=== PATIENT | male | born 1940 | race Caucasian/White ===

== ENCOUNTER 2017-03-02 13:02 | Outpatient (CLI) | payer MEDICARE, OTHER ==
[2017-03-02] MEDS ORDERED: IOPAMIDOL-300 100 ML VIAL IVP ONE (14:50)
--- NOTE | 2017-03-02 18:15 | CT Report ---
CT ABDOMEN AND PELVIS WITH AND WITHOUT CONTRAST: 03/02/2017 CLINICAL INDICATION: Right renal angiomyolipoma. TECHNIQUE: Axial CT images of the abdomen and pelvis were obtained prior to and following 100 mL Iso jon-300 intravenously, using split-bolus protocol. COMPARISON: Ultrasound 11/05/2015, CT 11/07/2014. FINDINGS: Limited evaluation of the lung bases is unremarkable. A small hiatal hernia is incidental ly noted. ABDOMEN: The right kidney again demonstrates a small angiomyolipoma in the posterior cortex. No lalo picious solid renal lesion is appreciated. No collecting system lesion is seen. The liver, spleen, pancreas, and adrenal glands are unremarkable. The gallbladder is not dilated. No bowel dilatation, free gas, or free fluid is present. No abdominal adenopathy is seen. PELVIS: The distal ureters are not dilated. No definite bladder lesion is appreciated. Scattered c olonic diverticulosis is seen, without CT evidence of diverticulitis. Osseous structures demonstrate degenerative changes. IMPRESSION: STABLE RIGHT RENAL ANGIOMYOLIPOMA. NO SUSPICIOUS RENAL LESION OR COLLECTING SYSTEM LESI ON IS IDENTIFIED. In accordance with CT protocol optimization, one or more of the following dose reduction techniques w ere utilized for this exam: automated exposure control, adjustment of mA and/or KV based on patient size, or use of iterative reconstructive technique. JOB #: [id number] EXT JOB #:[id number]
== END 2017-03-02 13:03 | disposition home or self-care (01) ==
LOC: DI 13:02
PROVIDERS: ATTEND Specialist
DX: D17.71 Benign lipomatous neoplasm of kidney (principal); N31.2 Flaccid neuropathic bladder, not elsewhere classified
CPT/HCPCS: 74178; Q9967

== ENCOUNTER 2017-04-02 11:38 | Outpatient (CLI) | payer MEDICARE, OTHER ==
--- NOTE | 2017-04-02 12:16 | XRAY Report ---
THREE-VIEW RIGHT KNEE: 04/02/2017 CLINICAL INDICATION: Pain. FINDINGS: AP, lateral, sunrise views of the right knee demonstrate mild osteoarthritis, with small o steophytes. A small effusion is present. There is no evidence of acute fracture or dislocation. IMPRESSION: MILD OSTEOARTHRITIS, WITH A SMALL JOINT EFFUSION. JOB #: [id number] EXT JOB #:[id number]
== END 2017-04-02 11:39 | disposition home or self-care (01) ==
LOC: DI 11:38
PROVIDERS: ATTEND Specialist
DX: M25.561 Pain in right knee (principal); M17.11 Unilateral primary osteoarthritis, right knee; M25.461 Effusion, right knee

== ENCOUNTER 2018-01-28 14:42 | Outpatient (CLI) | payer MEDICARE, OTHER ==
--- NOTE | 2018-01-29 15:50 | MRI Report ---
Procedure Date: 01/28/2018 Accession Number: [id number] / [id number] Procedure: MRI - Lumbar Spine W/O CPT Code: FULL RESULT: EXAM: MRI LUMBAR SPINE WITHOUT CONTRAST EXAM DATE: 01/28/2018 03:34 PM. CLINICAL HISTORY: 77-year-old with back pain, buttock pain, and bilateral lower extremity radiculopathy COMPARISON: MR lumbar spine 11/09/2014. TECHNIQUE: Multiplanar, multisequence T1-weighted and fluid-sensitive sequences of the lumbar spine from T12 to S1 without contrast. Other: None. FINDINGS: Spinal Cord: The conus terminates at L1-L2. The conus medullaris and cauda equina are unremarkable. Alignment: Frame Aligner sequence suggest 12 degrees of dextroconvex scoliotic curvature. There is 1-2 mm of fouzia retrolisthesis of L2 on L3, 3-4 mm of grade I anterolisthesis of L3 on L4 and 1-2 mm of grade I anterolisthesis of L4 on L5. Bone Marrow: Five cwn-pyk-ttccsml lumbar vertebral bodies are assumed. No acute fracture. There is endplate edema seen at L2-L3, L3-L4, L4-L5, and L5-S1 that may be degenerative in nature. No definite abnormal marrow replacing lesion. There is edema seen within the right L5 pedicle and facet may represent stress reaction. Disk Levels/Facets: There is ybdi-zx-ahtwfqab degenerative change, scattered Schmorl's node formation, mild loss of diskitis, disk desiccation seen throughout the lumbar spine. T11-T12: Small posterior disk bulge and bilateral arthritic facet disease, and prominent epidural fat. Mild spinal canal stenosis. Mild right neural foraminal narrowing. Findings appear progressed. T12-L1: Small posterior disk bulge, bilateral facet disease, and prominent epidural fat. Mild spinal canal stenosis. Minimal bilateral neural foraminal narrowing. Findings appear progressed. L1-L2: Small posterior disk bulge, bilateral facet disease, and prominent epidural fat. Mild spinal canal stenosis. Minimal bilateral neural foraminal narrowing. Findings appear progressed. L2-L3: Small posterior disk bulge, ligamentum flavum thickening, arthritic facet disease, and prominent epidural fat. Severe spinal canal stenosis and effacement of the lateral recesses with mass effect on the traversing bilateral L3 nerve roots. Moderate bilateral neural foraminal narrowing. Findings appear progressed. L3-L4: Small posterior disk bulge, bilateral facet disease, ligamentum flavum thickening, and prominent epidural fat. Severe spinal canal stenosis and effacement of lateral recesses with mass effect on the traversing bilateral L4 nerve roots. Moderate bilateral neural foraminal narrowing. Findings appear progressed. L4-L5: Small posterior disk bulge, bilateral facet disease, and ligamentum flavum thickening. Moderate to severe spinal canal stenosis. Moderate bilateral neural foraminal narrowing. Findings appear progressed. L5-S1: Small posterior disk bulge and bilateral facet disease. Effacement of the lateral recesses. Axho-nh-ywpmznss bilateral neural foraminal narrowing. Findings appear progressed. Musculature: Normal. No edema or fatty atrophy. Other: The partially visualized retroperitoneum is unremarkable. IMPRESSION: 1. Frame Aligner sequence suggest 12 degrees of dextroconvex scoliotic curvature. 2. There is 1-2 mm of fouzia retrolisthesis of L2 on L3, 3-4 mm of grade I anterolisthesis of L3 on L4 and 1-2 mm of grade I anterolisthesis of L4 on L5. 3. Multilevel degenerative changes that appear progressed from 11/09/2014. T11-T12: Mild spinal canal stenosis. Mild right neural foraminal narrowing. T12-l1: Mild spinal canal stenosis. Minimal bilateral neural foraminal narrowing. L1-l2: Mild spinal canal stenosis. Minimal bilateral neural foraminal narrowing. L2-L3: Severe spinal canal stenosis and effacement of the lateral recesses with mass effect on the traversing bilateral L3 nerve roots. Moderate bilateral neural foraminal narrowing. L3-L4: Severe spinal canal stenosis and effacement of lateral recesses with mass effect on the traversing bilateral L4 nerve roots. Moderate bilateral neural foraminal narrowing. L4-L5: Moderate to severe spinal canal stenosis. Moderate bilateral neural foraminal narrowing. L5-S1: Effacement of the lateral recesses. Hucs-yz-dunpsfog bilateral neural foraminal narrowing. Comment: The following findings are so common in adults without low back pain that while we report their presence, they must be interpreted with caution and in the context of the clinical situation. (Reference Maryk et al, Spine 2001) Prevalence of findings in patients without low back pain: Disk degeneration (any evidence): 92% Disk desiccation/T2 signal loss: 83% Disk height loss: 56% Disk bulge: 64% Disk protrusion: 32% Annular tear/high intensity zone: 38% RADIA
== END 2018-01-28 14:43 | disposition home or self-care (01) ==
LOC: DI 14:42
PROVIDERS: ATTEND Internal Medicine
DX: M47.896 Other spondylosis, lumbar region (principal); M51.36 Other intervertebral disc degeneration, lumbar region; M48.062 Spinal stenosis, lumbar region with neurogenic claudication; M43.16 Spondylolisthesis, lumbar region; M41.86 Other forms of scoliosis, lumbar region; M48.05 Spinal stenosis, thoracolumbar region
CPT/HCPCS: 72148

== ENCOUNTER 2020-12-13 08:24 | Outpatient (CLI) | payer MEDICARE, OTHER ==
--- NOTE | 2020-12-13 09:14 | XRAY Report ---
PROCEDURE: Wrist 4 View RT INDICATIONS: RIGHT SCAPHOID TENDERNESS TECHNIQUE: 4 views of the wrist were acquired. COMPARISON: None. FINDINGS: Bones: No fractures or dislocations. No suspicious bony lesions. Mild degenerative joint disease i s present at the radiocarpal joint and triscaphe joint. Scaphoid view: Scaphoid is intact. Soft tissues: No suspicious soft tissue calcifications. IMPRESSION: 1. No acute osseous abnormalities. If clinical symptoms persist, MRI may be helpful. 2. Mild degenerative joint disease. Reviewed by: Louis Jalloh MD on 12/13/2020 9:13 AM PDT Approved by: Louis Jalloh MD on 12/13/2020 9:13 AM PDT Station ID: [id number]
== END 2020-12-13 08:25 | disposition home or self-care (01) ==
LOC: DI.N 08:24
PROVIDERS: ATTEND Family Medicine
DX: M19.031 Primary osteoarthritis, right wrist (principal)

== ENCOUNTER 2022-11-01 16:39 | Emergency (ER) | payer MEDICARE, OTHER ==
[2022-11-01 16:48] VITALS: BP 194/90
[2022-11-01] MEDS ORDERED: PROPARACAINE 0.5% OPHTH DROPS 15 ML EACHEYE STA (16:50)
--- NOTE | 2022-11-01 17:05 | ED Physician Documentation ---
PD HPI OPHTHO - Stated complaint Stated Complaint: RT EYE INJ - Chief complaint Chief Complaint: Heent - History obtained from History obtained from: Patient - Additional information Additional information: This is an 82-year-old gentleman who wears glasses but otherwise does not have any eye problems. He developed bilateral eye irritation and potential foreign body sensation on the right at 1230 today while "puttering" outside. He was not doing anything specific that would cause a foreign body except he was throwing hay for his horses. His vision is unaffected. He tried irrigating the eyes which was unhelpful. PD PAST MEDICAL HISTORY - Past Medical History Cardiovascular: Hypertension, High cholesterol Respiratory: None Endocrine/Autoimmune: HyPERthyroidism GI: None : Benign prostate hypertrophy HEENT: None Psych: None Derm: None - Past Surgical History Past Surgical History: Yes General: Appendectomy, Colonoscopy - Present Medications Home Medications: Ambulatory Orders Medication Instructions Recorded Confirmed Aspirin [Aspir 81] 81 mg PO DAILY 07/23/15 11/01/22 HYDROcod/ACETAM 5/325 [Vicodin 1 - 2 ea PO Q6H PRN 07/23/15 11/01/22 5/325] Lisinopril 20 mg PO DAILY 07/23/15 11/01/22 Simvastatin 40 mg PO DAILY 07/23/15 11/01/22 hydroCHLOROthiazide 12.5 mg PO DAILY 07/23/15 11/01/22 [Hydrochlorothiazide] Erythromycin Base [Erythromycin 1 appful OP 5XD 7 Days #1 gm 11/01/22 Ophthalmic Ointment] - Allergies Allergies/Adverse Reactions: Allergies Allergy/AdvReac Type Severity Reaction Status Date / Time No Known Drug Allergies Allergy Verified 11/01/22 16:49 - Social History Does the pt smoke?: No Smoking Status: Never smoker Does the pt drink ETOH?: Yes Does the pt have substance abuse?: No - Immunizations Immunizations are current?: Yes - POLST Patient has POLST: No PD ED PE NORMAL - Vitals Vital signs reviewed: Yes - General General: Alert and oriented X 3, No acute distress - HEENT HEENT: PERRL, EOMI, Other (Injected conjunctiva right worse than left. He is pain-free after proparacaine. X-ray movements are normal. There is slight fluorescein uptake on the right that could be consistent with a conjunctival foreign body which is not currently seen. Ernie-Pen 26 right, 22 left) Results - Vitals Vitals: Vital Signs - 24 hr 11/01/22 16:44 Temperature 36.7 C Heart Rate 63 Respiratory 18 Rate Blood Pressure 194/90 H O2 Saturation 98 Oxygen O2 Source Room air PD Medical Decision Making - ED course ED course: It looks as though he has a corneal abrasion probably from foreign body that was in the superior conjunctival sac. Fluorescein uptake is kind typical for that. He does have borderline high eye pressures but the remainder of his physical findings are not consistent with an acute angle-closure glaucoma but discussed that he does need to see ophthalmology either way. His visual acuity is normal. His pupils are normal and reactive. Departure - Departure Disposition: 01 Home, Self Care Clinical Impression: Corneal abrasion Qualifiers: Encounter type: initial encounter Laterality: right Qualified Code(s): S05.01XA - Injury of conjunctiva and corneal abrasion without foreign body, right eye, initial encounter Condition: Good Record reviewed to determine appropriate education?: Yes Instructions: ED Eye Injury Corneal Abrasion Follow-Up: Derek Keys MD [Provider Admit Priv/Credential] - Prescriptions: Erythromycin Base [Erythromycin Ophthalmic Ointment] 1 appful OP 5XD 7 Days #1 gm Comments: It does look like there is a little corneal abrasion in the right eye. I suspect there was something under your lid that scraped it up. Should be better within a day. We did note you have modestly elevated eye pressures here, and I would follow-up with the chain saw driver regardless, specifically your pressure on the right was 26, 22 on the left.
[2022-11-01] MEDS ORDERED: ERYTHROMYCIN OPHTH OINT 1 GM TUBE RIGHTEYE STA (17:22)
== END 2022-11-01 17:31 | disposition home or self-care (01) ==
LOC: ED 16:39
DX: S05.01XA Injury of conjunctiva and corneal abrasion without foreign body, right eye, initial encounter (principal); X58.XXXA Exposure to other specified factors, initial encounter; E05.90 Thyrotoxicosis, unspecified without thyrotoxic crisis or storm; Z79.82 Long term (current) use of aspirin; Z79.899 Other long term (current) drug therapy
CPT/HCPCS: 99282; 99283; J3490

== ENCOUNTER 2022-11-05 11:28 | Outpatient (CLI) | payer MEDICARE, OTHER ==
--- NOTE | 2022-11-05 12:22 | XRAY Report ---
PROCEDURE: Knee 3 View BILAT INDICATIONS: BILATERAL KNEE PX TECHNIQUE: 3 views of the both knee(s) were acquired. COMPARISON: 04/02/2017 FINDINGS: Right side: Mild degenerative changes with osteophytes and joint space narrowing. No displaced fractu re or dislocation. Possible small knee joint effusion. Vascular calcifications. Patellar inferiorly e nthesopathy. Left side: Mild degenerative changes. There are osteophytes and joint space narrowing. No displaced f racture or dislocation. No significant joint effusion. Vascular calcifications. IMPRESSION: Mild degenerative changes. If there is high concern for further derangement, consider MR I evaluation. Reviewed by: Gilberto Bettencourt MD on 11/05/2022 12:21 PM PDT Approved by: Gilberto Bettencourt MD on 11/05/2022 12:21 PM PDT Station ID: [id number]
== END 2022-11-05 11:29 | disposition home or self-care (01) ==
LOC: DI 11:28
PROVIDERS: ATTEND Family Medicine
DX: M17.12 Unilateral primary osteoarthritis, left knee (principal)

== ENCOUNTER 2023-02-22 10:48 | Outpatient (CLI) | payer MEDICARE, OTHER ==
--- NOTE | 2023-02-22 17:29 | XRAY Report ---
PROCEDURE: Foot 3 View RT INDICATIONS: PAIN AT LATERAL FIFTH METATARSAL BONE TECHNIQUE: 3 views of the foot were acquired. COMPARISON: None. FINDINGS: Bones: Small calcification adjacent to lateral aspect of fifth metatarsal head is seen, tiny avulsio n injury cannot be excluded. Osteoarthritic changes are noted throughout right foot. No other fractur e or dislocation. No suspicious bony lesions. Soft tissues: No suspicious soft tissue calcifications or masses. IMPRESSION: Age-indeterminate avulsion injury involving lateral aspect of fifth metatarsal head suggest clinical correlation. No other fracture or dislocation. Moderate right foot joint osteoarthritis. Reviewed by: Papa Smith MD on 02/22/2023 5:27 PM PDT Approved by: Papa Smith MD on 02/22/2023 5:27 PM PDT Station ID: [id number]
== END 2023-02-22 10:49 | disposition home or self-care (01) ==
LOC: DI 10:48
PROVIDERS: ATTEND Family Medicine
DX: S99.921A Unspecified injury of right foot, initial encounter (principal)

== ENCOUNTER 2023-04-02 13:01 | Outpatient (CLI) | payer MEDICARE, OTHER ==
--- NOTE | 2023-04-02 14:13 | MRI Report ---
PROCEDURE: FOOT WO - RT INDICATIONS: SWELLING AND PAIN 5TH MT TECHNIQUE: Noncontrast sagittal T1 spin echo and T2 fast spin echo with fat saturation, long-axis T1 spin echo a nd T2 fast spin echo with fat saturation, short-axis proton density fast spin echo and T2 fast spin e cho with fat saturation through the forefoot. COMPARISON: None. FINDINGS: Image quality: Excellent. Bones and joints: No bone marrow cuboid, as well as the proximal fourth metatarsal adjacent to the f ourth and fifth tarsometatarsal joints. The sesamoid bones appear in expected positions, without inte rnal edema. No metatarsophalangeal joint degeneration. No intraosseous lesions. Soft tissues: The visualized plantar foot muscles demonstrate normal signal and bulk. Visualized fl exor and extensor tendons appear intact, without tenosynovitis. No soft tissue ganglion cysts or bur bautista fluid collections. Sagittal images demonstrate no evidence for plantar plate tears. IMPRESSION: 1. Fourth and fifth tarsometatarsal joint osteoarthritis. 2. No fracture. Reviewed by: Ronen Horton MD on 04/02/2023 2:11 PM PDT Approved by: Ronen Horton MD on 04/02/2023 2:11 PM PDT Station ID: [id number]
--- NOTE | 2023-04-02 16:34 | MRI Report ---
PROCEDURE: ANKLE WO - RT INDICATIONS: SWELLING AND PAIN 5TH MT TECHNIQUE: Noncontrast sagittal T1 spin echo and T2 fast spin echo with fat saturation, axial proton density fas t spin echo and T2 fast spin echo with fat saturation, coronal T1 spin echo and T2 fast spin echo wit h fat saturation through the ankle/hindfoot. COMPARISON: None. FINDINGS: Image quality: Excellent. Bones and joints: No bone marrow contusions or fractures. No hindfoot coalitions. No osteochondral injuries of the talar dome. No pathologic joint effusions. Medial structures: The posterior tibialis, flexor digitorum longus, and flexor hallucis longus tendo ns are intact, and demonstrates small amounts of surrounding fluid. The posterior tibial neurovascul ar bundle appears normal within the tarsal tunnel, without extrinsic mass effect. The deep layer (an terior and posterior tibiotalar ligaments) and superficial layer (tibionavicular, tibiospring, and ti biocalcaneal ligaments) of the deltoid ligament appear normal. The spring ligament components (super omedial calcaneonavicular, medioplantar oblique calcaneonavicular, and inferoplantar longitudinal lig aments) are intact. Lateral structures: The anterior talofibular, calcaneofibular, and posterior talofibular ligaments a ppear intact. More superiorly, the anterior and posterior tibiofibular ligaments appear normal, as i s the intermalleolar ligament. The tibiofibular syndesmosis is normal in width at 2 mm or less. The peroneus longus and brevis tendons demonstrate normal location and small amounts of surrounding flui d Adjacent bony peroneal tubercle and retrotrochlear prominence are normal in size. The sinus tarsi demonstrates normal fatty signal, without edema, fibrosis, or cyst formation. Visualized sinus tarsi components (cervical ligament, interosseous talocalcaneal ligament, roots of the inferior extensor r etinaculum) appear normal. Anterior structures: The tibialis anterior, extensor hallucis longus, and extensor digitorum longus tendons appear intact. Posterior and plantar structures: Achilles tendon is intact. Medial and lateral bands of the planta r fascia are of normal thickness. No abductor digiti quinti muscle atrophy to suggest Garcia neuropa thy. IMPRESSION: 1. Medial and lateral flexor tenosynovitis. 2. No fracture. Reviewed by: Ronen Horton MD on 04/02/2023 4:33 PM PDT Approved by: Ronen Horton MD on 04/02/2023 4:33 PM PDT Station ID: [id number]
== END 2023-04-02 13:02 | disposition home or self-care (01) ==
LOC: DI 13:01
PROVIDERS: ATTEND Podiatrist
DX: M65.9 Synovitis and tenosynovitis, unspecified (principal); M19.071 Primary osteoarthritis, right ankle and foot